=== PATIENT | female | born 1965 | race Caucasian/White ===

== ENCOUNTER 2017-01-09 05:50 | Day surgery (SDC) | payer BC ==
[2016-12-31 11:13] LABS: HEMATOCRIT 39.4 % (36.0-48.0); HEMOGLOBIN 13.3 g/dL (12.0-16.0)
--- NOTE | ~2017-01-09 | OP ---
Record Of Operation [address] [place]. [address] NAME: RON FRANCE : 65 STATUS : REG [facility] [place] PAT#: [id number] AGE: 51 ADM/REG DATE : 01/09/17 MR#: [id number] REPORT SERV DATE: 01/09/17 DICTATED BY: BHAVANI MONTEMAYOR DATE: 01/09/17 REPORT STATUS : Draft TRANSCRIBED BY: MODL DATE: 01/09/17 DATE OF PROCEDURE: 01/09/2017 SURGEON: Bhavani Montemayor MD. SERVICE: Otolaryngology. PREOPERATIVE DIAGNOSIS: Chronic rhinosinusitis. POSTOPERATIVE DIAGNOSES: Chronic rhinosinusitis with nasal polyposis. PROCEDURES PERFORMED: 1. Bilateral inferior turbinate outfracture. 2. Bilateral maxillary antrostomy with tissue removal. 3. Bilateral total ethmoidectomy. 4. Bilateral sphenoidotomy with tissue removal. 5. Bilateral frontal sinusotomy with instrumentation and balloon sinuplasty. 6. Septoplasty. 7. Placement of bilateral Propel stents in the ethmoid cavities. INDICATIONS FOR PROCEDURE: The patient is a 51-year-old female with multiple sinus infections, chronic postnasal drip, facial pressure, and rhinorrhea, who has been refractory to antibiotic therapy and topical allergy medication. CT scan showed rodrigez-opacification of all nasal sinuses. She presents for surgical management. ANESTHESIA: General endotracheal. COMPLICATIONS: None. SPECIMENS: Sinus contents. FINDINGS: 1. Edematous mucosa throughout nasal cavities. 2. Bilateral middle meatus polypoid change. 3. Thick mucoid drainage from middle meatus and frontal sinus outflow. 4. Polypoid change in the bilateral sphenoid region. 5. Left septal deviation status post septoplasty. ESTIMATED BLOOD LOSS: 100 mL. RETAINED ITEMS: Bilateral Propel stents placed in the ethmoid cavity. DESCRIPTION OF PROCEDURE: The patient was identified in the preoperative holding, where informed consent was ensured. She was brought to the operating room, placed on the operating room table in supine position. General endotracheal anesthesia was induced without difficulty. A time-out was performed to identify the patient and discuss operative Record Of [address] [place]. [address] NAME: RON FRANCE : 65 STATUS : REG [facility] PAT#: [id number] AGE: 51 ADM/REG DATE : 01/09/17 MR#: [id number] REPORT SERV DATE: 01/09/17 DICTATED BY: BHAVANI MONTEMAYOR DATE: 01/09/17 REPORT STATUS : Draft TRANSCRIBED BY: KIRSTEN DATE: 01/09/17 plan. The patient was prepped and draped in the standard fashion for this procedure. Prior to proceeding, Whisper navigation system was affixed to the patient's head, and all instruments were registered appropriately. Bony landmarks were identified including the nasal dorsum and the left lateral orbital wall. The Medtronic navigation system was based on the patient's preoperative CT scan which was reviewed by me. Once all instruments had been registered, and landmarks were identified, the Infoharmonitronic navigation system was used the remainder of the case for intraoperative monitoring. The nasal cavities were packed with epinephrine-soaked pledgets with 1:1000 epinephrine. This was allowed to take effect for approximately 5 minutes. Attention was initially turned to the left side. As noted, there was a left septal deviation. This was relatively high. Consequently, the maxillary sinus, anterior ethmoids, and sphenoid sinuses could be addressed with mild limitation. However, the frontal sinus could not be visualized. The middle meatus was decongested with topical epinephrine. The middle turbinate was medialized with a small relaxing incision made in the basal lamella. The uncinate process was identified and taken down in its entirety with a combination of backbiter, ball probe, and microdebrider. The maxillary antrum was entered with a ball probe, and the cavity of the lumen was identified. The antrum was widened in a posterior-anterior direction with a combination of backbiters and microdebrider. The ethmoid bulla was then identified and resected. With direct visualization of the maxillary roof, the basal lamella was entered, and the posterior ethmoid cells were encountered. These were opened widely. Prior to proceeding, the superior turbinate was identified, and the inferior one-third was removed. The sphenoethmoidal recess could be visualized. The sphenoid sinus was entered with a J- curette and Kerrison. This was by far the asymmetric smaller side. A Kerrison was used to trace along the sphenoid rostrum as well as what I call the corner pocket laterally toward the skull base. The ethmoid bony partitions were then removed in sequential fashion to identify the skull base and to subsequently identify the frontal sinus recess. Microdebrider was used carefully along the skull base to remove soft tissue Partitions. Kerrisons were used to remove bony partitions. Care was taken to the skeletonize the lamina papyracea as well as to avoid injury to the skull base. The frontal sinus recess was then identified. This was confirmed with Whisper navigation system. A frontal sinus probe was used to cannulate the frontal sinus. A combination of curved microdebrider as well as instrumentation was used to take down the soft tissue as well as bony partitions around the frontal outflow tract. A 6-mm Medtronic balloon was then inserted into the tract and inflated. This achieved good dilation of the frontal sinus. Please note, the frontal sinus portion of the procedure was performed after, the septoplasty portion of the procedure will be dictated in a separate. Topical decongestant was once again applied, and attention was turned to the contralateral nasal cavity. We then proceeded to perform a similar procedure on the contralateral side. The inferior turbinate was outfractured with a Faraz. The middle turbinate was medialized and topical decongestant was placed in the middle meatus. An incision was once again performed in the basal lamella to further medialized the middle turbinate. The uncinate process was removed in its entirety. The maxillary antrum was visualized and opened widely in an anterior and posterior direction with the combination of the backbiter and microdebrider. The ethmoid bulla was removed, and the posterior ethmoid cells were entered. This was performed under direct visualization of the maxillary roof. The superior turbinate was visualized and the Record Of Operation [place] [id number] [facility] [place]. [address] NAME: RON FRANCE : 65 STATUS : REG [facility] [place] PAT#: [id number] AGE: 51 ADM/REG DATE : 01/09/17 MR#: [id number] REPORT SERV DATE: 01/09/17 DICTATED BY: BHAVANI MONTEMAYOR DATE: 01/09/17 REPORT STATUS : Draft TRANSCRIBED BY: MODL DATE: 01/09/17 inferior one-third was resected. Sphenoethmoidal recess could be seen at this point. This was entered with a J-curette and Kerrison. The sphenoid on this side was quite large compared to the contralateral side. The sphenoid rostrum was removed and the corner pocket was identified toward the skull base. The posterior ethmoid cavity was widened appropriately identifying the lamina papyracea as well as the skull base. There was significant polypoid change both on this side and the contralateral side. The bony partitions of the ethmoid were removed in sequential fashion towards the frontal sinus recess. The frontal sinus recess was then identified, and the soft tissue was taken down with a curved microdebrider as well as frontal sinus instruments. Bony partitions were removed with Kerrison. A frontal sinus balloon was inserted and then inflated once again. The frontal sinus recess was seen to dilate appropriately. Topical decongestant was then applied with epinephrine-soaked pledgets. Due to the left septal deviation and need for postoperative debridement, decision was made to proceed with septoplasty. An incision was made in the anterior septal mucosa with Bovie cautery. This was carried down to the level of cartilage. Bilateral mucoperichondrial flaps were elevated in an anterior to posterior fashion. The cartilage itself was perforated such that the submucoperichondrial flaps could be elevated on both sides. No perforations were noted during this portion of the procedure. The nasal cartilage was taken down in a sequential fashion being careful to preserve 1 cm strides both anteriorly and superiorly along the nasal dorsum. The cartilage was removed until the bony septum was encountered. Due to small septal deviation of the bony septum posteriorly, some portion of the bone was also removed. This was assessed on intranasal examination until the left middle turbinate and frontal sinus outflow tract could be visualized appropriately. A septal whip stitch was placed to reapproximate the submucoperichondrial flaps. A 4-0 chromic was used to reapproximate the anterior septal incision. Nasal cavities were then thoroughly irrigated. An orogastric tube was placed to suction gastric contents. Bilateral propel stents were placed in the ethmoid cavities. Topical Daniel powder was applied. The patient was turned over to Anesthesia for awakening and extubation, and transported to the PACU in stable condition. DISPOSITION: The patient will follow up in approximately one week for debridement. /MODL Bhavani Montemayor MD / [id number] CC: MD Vinicius Simon M.D.
[~2017-01-09 05:50] MED LIST: 8 HOUR650 MG PO; ADVIL PO; CLARIT10 PO; PROAIRRESP INH; [UNRECOGNIZED DRUG - OTHER]
[2017-01-18] MEDS ORDERED: T PO (19:16)
[2017-01-18] MEDS ORDERED: [UNRECOGNIZED DRUG - OTHER] PO (19:16)
[2017-01-18] MEDS ORDERED: CLARIT10 PO (19:17)
[2017-01-18] MEDS ORDERED: ASTELIN NAS (19:17)
[2017-01-18] MEDS ORDERED: PROAIRRESP INH (19:19)
[2017-01-18] MEDS ORDERED: SYMBICORT 160/41 INH INH (19:19)
[2017-01-18] MEDS ORDERED: ADVIL PO (19:19)
[2017-01-18] MEDS ORDERED: [UNRECOGNIZED DRUG - REMARK] OPH (19:20)
[2017-01-18] MEDS ORDERED: PULRESP.5 INH (19:20)
[2017-01-18] MEDS ORDERED: AUG875 PO (19:21)
[2017-03-26] MEDS ORDERED: OSPHENA60 MG PO (11:43)
[2017-03-26] MEDS ORDERED: CAT1 PO (11:44)
== END 2017-01-09 15:54 | disposition home or self-care (01) ==
LOC: SDC 05:50
PROVIDERS: Otolaryngology
PROC: 099R4ZZ Drainage of Left Maxillary Sinus, Percutaneous Endoscopic Approach (ICD-10-PCS; 2017-01-09)
PROC: 099Q4ZZ Drainage of Right Maxillary Sinus, Percutaneous Endoscopic Approach (ICD-10-PCS; 2017-01-09)
PROC: 09QR4ZZ Repair Left Maxillary Sinus, Percutaneous Endoscopic Approach (ICD-10-PCS; 2017-01-09)
PROC: 09QQ4ZZ Repair Right Maxillary Sinus, Percutaneous Endoscopic Approach (ICD-10-PCS; 2017-01-09)
PROC: 09SM0ZZ Reposition Nasal Septum, Open Approach (ICD-10-PCS; 2017-01-09)
PROC: 09TV4ZZ Resection of Left Ethmoid Sinus, Percutaneous Endoscopic Approach (ICD-10-PCS; 2017-01-09)
PROC: 09TU4ZZ Resection of Right Ethmoid Sinus, Percutaneous Endoscopic Approach (ICD-10-PCS; 2017-01-09)
PROC: 09CX4ZZ Extirpation of Matter from Left Sphenoid Sinus, Percutaneous Endoscopic Approach (ICD-10-PCS; 2017-01-09)
PROC: 09CW4ZZ Extirpation of Matter from Right Sphenoid Sinus, Percutaneous Endoscopic Approach (ICD-10-PCS; 2017-01-09)
PROC: 09JY4ZZ Inspection of Sinus, Percutaneous Endoscopic Approach (ICD-10-PCS; 2017-01-09)
PROC: 09SL0ZZ Reposition Nasal Turbinate, Open Approach (ICD-10-PCS; principal; 2017-01-09 07:15)
DX: J32.8 Other chronic sinusitis (principal); J33.9 Nasal polyp, unspecified; J45.909 Unspecified asthma, uncomplicated; E66.01 Morbid (severe) obesity due to excess calories; Z90.49 Acquired absence of other specified parts of digestive tract; Z90.710 Acquired absence of both cervix and uterus; Z88.2 Allergy status to sulfonamides; Z68.37 Body mass index [BMI] 37.0-37.9, adult; Z79.1 Long term (current) use of non-steroidal anti-inflammatories (NSAID); Z79.899 Other long term (current) drug therapy; Z98.890 Other specified postprocedural states
CPT/HCPCS: 85014; 85018; 85730; 88305; 93005; A9270-GY; C1725; C2625; J0690; J2250; J2370; J2405; J2710; J3010

== ENCOUNTER 2017-04-09 07:28 | Day surgery (SDC) | payer BC ==
[2017-03-30 11:07] LABS: BASOPHILS 0.5 %; BASOPHILS ABSOLUTE 0.03 10/3/uL (0.0-0.16); EOSINOPHILS 1.8 %; EOSINOPHILS ABSOLUTE 0.12 10/3/uL (0.0-0.53); IMMATURE GRANULOCYTES 0.2 %; IMMATURE GRANULOCYTES ABSOLUTE 0.01 10/3/uL (0.0-0.11); LYMPHOCYTES 26.8 %; LYMPHOCYTES ABSOLUTE 1.78 10/3/uL (0.67-4.30); MEAN CORPUSCULAR HEMOGLOB 29.7 pg (26.0-34.0); MEAN PLATELET VOLUME 8.5 fL (9.2-13.0); MONOCYTES 8.9 %; MONOCYTES ABSOLUTE 0.59 10/3/uL (0.21-1.20); NEUTROPHILS 61.8 %; NEUTROPHILS ABSOLUTE 4.12 10/3/uL (2.02-8.40); PLATELET COUNT 301 10/3/uL (150-400); RBC DISTRIBUTION WIDTH 12.5 % (12.0-16.0); WHITE BLOOD CELLS 6.7 10/3/uL (4.5-10.5)
[2017-03-30 11:09] LABS: HEMATOCRIT 40.3 % (36.0-48.0); HEMOGLOBIN 13.3 g/dL (12.0-16.0); MANUAL DIFF NO %; RED CELL COUNT 4.48 10/6/uL (4.0-5.6)
[2017-03-30 11:29] LABS: A/G RATIO 1.2 (0.7-1.9); ALBUMIN 3.9 G/DL (3.5-5.0); ALKALINE PHOSPHATASE 61 U/L (45-117); BUN (BLOOD UREA NITROGEN) 15 MG/DL (6-23); CALCIUM, SERUM 9.2 MG/DL (8.5-10.4); CHLORIDE, SERUM 104 MMOL/L (96-112); CREATININE 1.18 MG/DL (0.55-1.02); GFR AFRICAN AMERICAN 62 ML/MIN (>=60); GFR NON AFRICAN AMERICAN 53 ML/MIN (>=60); GLOBULIN 3.3 G/DL (2.5-4.1); GLUCOSE, SERUM 95 MG/DL (60-99); POTASSIUM, SERUM 4.3 MMOL/L (3.5-5.3); SGOT(AST) 21 U/L (5-40); SGPT(ALT) 22 U/L (5-65); SODIUM, SERUM 139 MMOL/L (135-148); TOTAL BILIRUBIN 0.4 MG/DL (0-1.2); TOTAL PROTEIN 7.2 G/DL (6.0-8.5)
[2017-03-30 11:30] LABS: CO2 (CARBON DIOXIDE) 31 MMOL/L (24-34)
--- NOTE | ~2017-04-09 | OP ---
Record Of Operation [facility] [address] [place]. [address] NAME: RON FRANCE : 65 STATUS : REG [facility]#: [id number] AGE: 51 ADM/REG DATE : 04/09/17 MR#: [id number] REPORT SERV DATE: 04/09/17 DICTATED BY: TOM HASSAN III DATE: 04/09/17 REPORT STATUS : Draft TRANSCRIBED BY: KIRSTEN DATE: 04/09/17 DATE OF PROCEDURE: 04/09/2017 PREOPERATIVE DIAGNOSIS: Biopsy-proven invasive cancer of the right breast. POSTOPERATIVE DIAGNOSIS: Biopsy-proven invasive cancer of the right breast. PROCEDURE: Right breast segmentectomy with stereotactic wire localization and sentinel lymph node biopsy. ANESTHESIA: General with intubation. COMPLICATIONS: None. ESTIMATED BLOOD LOSS: Less than 5 mL. SPECIMENS: Lumpectomy specimen from right breast and sentinel lymph node from right axilla. DRAINS: None. LAP AND SPONGE COUNT: Correct x3. BRIEF HISTORY: This 51-year-old female was recently diagnosed with invasive cancer of the right breast. This cancer was located at the 11 o'clock position in the upper outer quadrant of the breast. The patient was offered the option of mastectomy versus breast conservative therapy. The pros and cons, advantages, and disadvantages of each were discussed with the patient. The patient preferred to have lumpectomy or breast conservative therapy. It was therefore felt that right breast lumpectomy with stereotactic wire localization, sentinel lymph node biopsy, and possible axillary dissection was indicated. This procedure, the risks, benefits, and alternatives, including not limited to the risk for bleeding, infection, pain, swelling, scarring, or deformity to the area, seroma formation, hematoma formation, distortion of breast, change in size of the breast, nerve injury, chronic paresthesia, or pain in the arm, shoulder, or axilla, nerve injury with muscle weakness or paralysis in muscles of upper back or shoulder, chronic lymphedema of the arm, possible need to return to the operating room for wider excision, completion of mastectomy, or completion axillary dissection, if there were discrepancies between the frozen section report and final pathology report and unforeseen complications including deep venous thrombosis, pulmonary embolus, myocardial infarction, stroke, pneumonia and , were fully and completely explained to the patient and family at length prior to surgery. The fact that this was a major operation with risk for major morbidity and mortality has been explained. The possible need to return to the operating room again for further surgery as above was explained. The patient's questions were answered. She understood the risks and agreed to the surgery as planned. Record Of Operation [facility] [address] [place]. [address] NAME: RON FRANCE : 65 STATUS : REG [facility] [place] PAT#: [id number] AGE: 51 ADM/REG DATE : 04/09/17 MR#: [id number] REPORT SERV DATE: 04/09/17 DICTATED BY: TOM HASSAN III DATE: 04/09/17 REPORT STATUS : Draft TRANSCRIBED BY: MODL DATE: 04/09/17 DESCRIPTION OF PROCEDURE: After being properly identified and after discussing the risks of surgery with her again in the preoperative area, and after lymphoscintigraphy had been performed per Radiology and stereotactic wire localization of the lesion performed per Radiology, the patient was taken to the operating room and placed in the supine position on the operating room table. General anesthesia was administered. She was intubated without difficulty. The right breast, arm, chest, and axilla were prepped and draped sterilely in the usual fashion, taking care not to dislodge the guidewire from the skin. After an appropriate "time-out" per JCAHO standards, a curvilinear incision was made in the upper outer quadrant of the breast, laterally, using the guidewire as the center. The incision was continued through the subcutaneous tissue. Hemostasis was controlled with cautery. Using sharp dissection, we dissected a core of breast tissue centered around the guidewire. Dissection continued down to the chest wall. The tumor itself was deep along the posterior aspect of the breast along the chest wall. The entire block of tissue or segment of the breast consisting of the guidewire in the skin and subcutaneous tissue and breast tissue down to the chest wall including the major pectora fascia was excised. This was oriented with sutures and sent to Radiology. Specimen imaging was performed, confirming the tumor of concern to have been removed radiographically. This specimen was then sent to pathology and interpreted as containing the tumor with clear margins. Using the same dissection, we dissected into the axilla. Using sharp dissection, we dissected into the axilla. With the navigator probe, we identified a sentinel lymph node. This sentinel lymph node was completely resected. The 10 second ex vivo count of this lymph node was approximately 1400. The background count of the axilla after removal of this lymph node was essentially 0. The wound was irrigated copiously with saline. Hemostasis was assured. The subcutaneous tissue was closed with a running 3-0 Vicryl suture. The skin was closed with running subcuticular 4-0 Monocryl stitch. The incision was injected with 0.5% Marcaine. Dressings were applied. Anesthesia was reversed. The patient was taken to the recovery room in stable condition. She tolerated the procedure well. Her family was informed of the results of surgery. The patient will be discharged when stable and comfortable. Her family was advised that she should keep the wound clean and dry for 48 hours, that she should not drive for three to four days after surgery or while using narcotics and that she should resume her usual medications. She has been asked to return in two weeks for followup or sooner if any fever, chills, wound drainage, or other problems prior to that time. She was given a prescription for Percocet 7.5 one t.i.d., #12, as needed for pain, which she was advised not to use while driving. JOSE RAUL/KIRSTEN Tom Hassan III, M.D. / [id number] Record Of [address] [address] NAME: RON FRANCE : 65 STATUS : REG [facility] [place] PAT#: [id number] AGE: 51 ADM/REG DATE : 04/09/17 MR#: [id number] REPORT SERV DATE: 04/09/17 DICTATED BY: TOM HASSAN III DATE: 04/09/17 REPORT STATUS : Draft TRANSCRIBED BY: KIRSTEN DATE: 04/09/17 CC: Jesus Leary III
--- NOTE | ~2017-04-09 | PREOPHP ---
PreOp History and Physical [place] [id number] [facility] [place]. [address] NAME: RON FRANCE : 65 STATUS : PRE [facility] [place] PAT#: [id number] AGE: 51 ADM/REG DATE : MR#: [id number] REPORT SERV DATE: 04/09/17 DICTATED BY: TOM HASSAN III DATE: 03/18/17 REPORT STATUS : Draft TRANSCRIBED BY: MODL DATE: 03/18/17 HISTORY OF PRESENT ILLNESS: This 51-year-old female comes to the operating room for right breast lumpectomy with stereotactic wire localization, sentinel lymph node biopsy and possible axillary lymph node dissection if her sentinel lymph node is found to be positive on frozen section. The patient recently had a routine mammogram in July 2016. She was found to have a cluster of microcalcifications. A followup mammogram was recommended and this was recently performed. This showed an area concerning the right breast. Biopsy was performed, confirming invasive cancer. The patient has an invasive cancer of the right breast which is biopsy-proven. She has elected to have breast conservative therapy. The option of mastectomy versus lumpectomy have been discussed with her. The pros and cons, advantages, and disadvantages of each were discussed. The patient has chosen to have a lumpectomy for breast conservative therapy. She comes to the operating room now for right breast lumpectomy with stereotactic wire localization of the lesion, sentinel lymph node biopsy and possible axillary lymph node dissection. The patient has no palpable breast mass that she is aware of. She has had no nipple discharge. She has no breast pain or tenderness. She has a family history for breast cancer in that a paternal grandmother had breast cancer at age 60. PAST MEDICAL HISTORY: Essentially unremarkable. MEDICATIONS: Bi-Est, clonidine, Osphena, Symbicort, cetirizine, ProAir, azelastine. ALLERGIES: NONE. PAST SURGICAL HISTORY: Includes cholecystectomy, laparoscopic band surgery, hysterectomy. FAMILY HISTORY: Positive for heart disease and breast cancer as above. SOCIAL HISTORY: No history of tobacco or alcohol use. REVIEW OF SYSTEMS: The patient's 14-point review of systems is otherwise unremarkable. PHYSICAL EXAMINATION: GENERAL: This is an obese female, in no acute distress. She is alert and oriented x3. VITAL SIGNS: Blood pressure 134/84, pulse 69, temperature 97.8. HEENT: Unremarkable. Cranial nerves 2 through 12 are normal. LUNGS: Clear. CARDIAC: Normal. NECK: Unremarkable. No adenopathy. BREASTS: Both breasts are remarkable for fibroglandular tissue. There are no dominant masses or nodules. Both nipples are normal without discharge. Both axilla normal with no adenopathy. The patient examined in both supine and sitting position. ABDOMEN: Soft, nontender. PreOp History and Physical [address] [address] NAME: RON FRANCE : 65 STATUS : PRE [facility] [place] PAT#: [id number] AGE: 51 ADM/REG DATE : MR#: [id number] REPORT SERV DATE: 04/09/17 DICTATED BY: TOM HASSAN III DATE: 03/18/17 REPORT STATUS : Draft TRANSCRIBED BY: KIRSTEN DATE: 03/18/17 LABORATORY DATA: Recent mammogram shows an irregular asymmetry at the 11 o'clock position in the right breast. There is noted to be a 5 x 9 mm spiculated asymmetric lesion at the 11 o'clock position in the right breast which is noted to be increased in size from previous mammograms dating back to 2012. Ultrasound was normal. Recent stereotactic directed biopsy of this lesion of concern was performed showing this to be an invasive ductal carcinoma, well differentiated, grade 1, ER/IN positive. ASSESSMENT: 1. 51-year-old female biopsy proven invasive cancer of the right breast. 2. Obesity. PLAN: The patient comes to the operating room now for right breast lumpectomy with stereotactic wire localization, sentinel lymph node biopsy, and possible axillary dissection. The fact that she will need postop radiation therapy has been explained. The option of mastectomy has been offered to the patient but declined. The procedure risks, benefits, and alternatives, including not limited to the risk for bleeding, infection, pain, swelling, scarring, deformity to the breast, seroma formation, hematoma formation, distortion of breast, change in size of the breast, false localization, possibility of a positive margin on permanent pathology requiring reoperation with wider excision or completion mastectomy, possible discrepancy between the frozen section and permanent pathology regarding the lymph node requiring return to the operating room for completion axillary dissection, and unforeseen complications including deep venous thrombosis, pulmonary embolus, myocardial infarction, stroke, pneumonia, and , have been fully explained to the patient. The fact that her breasts will be smaller and there could be distortion or change in size of the breast, or deformity to the breast, has been explained. The fact that the cosmetic results could be poor has been explained. The patient's questions have been answered. She clearly understands the risks and agrees to surgery as planned. RHJ/KIRSTEN Tom Hassan III, M.D. / [id number]
[~2017-04-09 07:28] MED LIST changes: +ASTELIN NAS; +AUG875 PO; +CAT1 PO; +OSPHENA60 MG PO; +PULRESP.5 INH; +SYMBICORT 160/41 INH INH; +T PO; +[UNRECOGNIZED DRUG - OTHER] PO; +[UNRECOGNIZED DRUG - REMARK] OPH
== END 2017-04-09 17:36 | disposition home or self-care (01) ==
LOC: SDC 07:28
PROVIDERS: Surgery
PROC: 0BB Respiratory System, Excision (ICD-10-PCS; principal; 2017-04-09 11:30)
DX: C50.911 Malignant neoplasm of unspecified site of right female breast (principal); E66.9 Obesity, unspecified; J45.909 Unspecified asthma, uncomplicated; F41.9 Anxiety disorder, unspecified; Z79.899 Other long term (current) drug therapy; Z90.49 Acquired absence of other specified parts of digestive tract; Z90.710 Acquired absence of both cervix and uterus; Z98.890 Other specified postprocedural states; Z88.2 Allergy status to sulfonamides
CPT/HCPCS: 71020; 76098; 78195; 80053; 85025; 88307; 88331; 88332; 88341; 88342; 93005; A9270-GY; A9541; J0690; J2250; J2270; J2405; J3010